=== PATIENT | female | born 1940 | race Caucasian/White ===

== ENCOUNTER 2018-09-05 11:56 | Emergency (ER) | payer MEDICARE ==
[2018-09-05 12:27] LABS: HEMATOCRIT 39.9 % (37.0-47.0); HEMOGLOBIN 12.8 g/dl (12.0-16.0); IMMATURE GRANULOCYTES 0.8 % (0.0-5.0); MEAN CELL VOLUME 97.6 fL CALC (80.0-100.0); MEAN CORPUSCULAR HGB 31.3 pG CALC (26.0-32.0); MEAN CORPUSCULAR HGB CONC 32.1 g/L CALC (32.0-36.0); NEUT# 13.97 thou/uL (2.00-7.15); RED BLOOD COUNT 4.09 mill/uL (4.20-5.60); RED CELL DISTRI WIDTH 14.4 % (11.5-15.5)
[2018-09-05] MEDS ORDERED: SERTRALINE50 MG PO (12:29)
[2018-09-05] MEDS ORDERED: ZESTRIL5 M1 PO (12:29)
[2018-09-05] MEDS ORDERED: ASPIRIN81 MG PO (12:30)
[2018-09-05] MEDS ORDERED: VITAMIN D350000 UNIT PO (12:30)
[2018-09-05] MEDS ORDERED: HYDROCHLOROT25 MG PO (12:30)
[2018-09-05] MEDS ORDERED: BREO ELLIPTA 101 INH (12:42)
[2018-09-05 12:48] LABS: ALBUMIN 4.1 g/dL (3.2-5.0); ALKALINE PHOSPHATASE 99 u/l (38-126); ANION GAP 16 (6-22 (CALC)); BILIRUBIN, TOTAL 0.8 mg/dL (0.0-1.4); BUN 23 mg/dL (8-23); BUN/CREATININE RATIO 19 (12-20 (CALC)); CARBON DIOXIDE 28 mmol/l (22-30); CHLORIDE 98 mmol/l (95-108); CREATININE 1.2 mg/dL (0.5-1.0); GFR 44 ML/MIN (>=60 (CALC)); GFR FOR AFR.AMER. 53 ML/MIN (>=60 (CALC)); POTASSIUM 4.1 mmol/l (3.5-5.1); SGOT/AST 29 u/l (9-36); SODIUM 138 mmol/l (137-146)
[2018-09-05] MEDS ORDERED: PROVENTIL108 MCG/AC IN (13:59)
[2018-09-05] MEDS ORDERED: ZITHROMAX250 MG PO (13:59)
[2018-09-05] MEDS ORDERED: MEDDOSEPAK PO (13:59)
[2018-09-05 14:29] VITALS: BP 170/82
== END 2018-09-05 14:55 | disposition home or self-care (01) ==
LOC: ED 11:56
PROVIDERS: Emergency Medicine
DX: J44.1 Chronic obstructive pulmonary disease with (acute) exacerbation (principal); J06.9 Acute upper respiratory infection, unspecified; I10 Essential (primary) hypertension; R06.02 Shortness of breath